=== PATIENT | male | born 1970 | race Caucasian/White ===

== ENCOUNTER 2017-03-27 23:26 | Emergency (ER) | payer MEDICAID ==
[~2017-03-27] VITALS: Ht 175.3 cm; Wt 81.6 kg
[2017-03-27 23:56] VITALS: BP 129/90
== END 2017-03-28 05:30 | disposition left against medical advice (07) ==
LOC: EDSEX 23:42 → ER 23:42
DX: M25.551 Pain in right hip (principal); Z53.21 Procedure and treatment not carried out due to patient leaving prior to being seen by health care provider
CPT/HCPCS: 73502

== ENCOUNTER 2017-03-28 06:17 | Emergency (ER) | payer MEDICAID ==
[~2017-03-28] VITALS: Ht 177.8 cm; Wt 77.1 kg
[2017-03-28] MEDS ORDERED: HYDROcodone-ACET 7.5/325MG TAB PO ONE (08:00)
[2017-03-28 08:01] VITALS: BP 143/78
[2017-03-28] MEDS ORDERED: KETOROLAC TROMETH 60MG/2ML VIAL IM ONE (08:15)
[2017-03-28] MEDS ORDERED: LORazepam 0.5 MG TAB PO ONE (09:00)
== END 2017-03-28 09:07 | disposition home or self-care (01) ==
LOC: EDBD 06:17 → ER 06:24
DX: M16.11 Unilateral primary osteoarthritis, right hip (principal)
CPT/HCPCS: 96372; 99283; J1885